=== PATIENT | male | born 1955 | race Caucasian/White ===

== ENCOUNTER → 2021-10-19 | Outpatient (CLI) | payer MEDICARE ==
[~2021-10-19] MED LIST: AMLODIPINE BESY10 MG PO; ASPIRIN EC81 M1 PO; C COMPLEX1000 MG PO; COREG CR20 MG PO; HYDROCODON-ACE1 EAC7 PO; LOMOTIL TABLET1 EACH PO; MOBIC15 MG PO; MULTIVITAMINS PO; SUPER B COMPLE1 EAC2 PO; TRAMADOL 50 MG50 MG PO; VITAMIN B6 PO
--- NOTE | 2021-10-19 15:17 | 2DMMODE ---
[place] [address] 2 D/M-MODE ECHOCARDIOGRAM Name: VICENTE MORALES [id number] Admission: 10/19/21 Attend Phys: Vicente Mays, Discharge: Date of : 51 Date of Service: 10/19/21 1517 Report #: [id number] THIS REPORT FOR: cc: Roger Shabazz Vincent R. DO Holkins,Regis Mortensen MD [facility] ~ APPROVED REPORT Study performed: 10/19/2021 11:43:01 EXAM: Comprehensive 2D, Doppler, and color-flow Echocardiogram Patient Location: Out-Patient BSA: 1.85 HR: 80 bpm BP: 140/95 mmHg Other Information Study Quality: Good Indications Abnormal ECG Hypertension/HDD 2D Dimensions IVSd: 11.87 (7-11mm) LVOT Diam: 21.40 (18-24mm) LVDd: 46.50 mm PWd: 10.87 (7-11mm) Ascending Ao: 30.62 (22-36mm) LVDs: 31.30 (25-40mm) Aortic Root: 28.76 mm Volumes Left Atrial Volume (Systole) LA ESV Index: 20.30 mL/m2 Aortic Valve AoV Peak Demarco.: 1.18 m/s AO Peak Gr.: 5.56 mmHg LVOT Max P.12 mmHg AO Mean Gr.: 3.20 mmHg LVOT Mean P.63 mmHg LVOT Max V: 1.01 m/s AO V2 VTI: 21.00 cm LVOT Mean V: 0.56 m/s JUAN (VTI): 2.97 cm2 LVOT V1 VTI: 17.35 [place] [address] 2 D/M-MODE ECHOCARDIOGRAM Name: VICENTE MORALES [facility] [id number] Admission: 10/19/21 Attend Phys: Vicente Mays, Discharge: Date of : 51 Date of Service: 10/19/21 1517 Report #: [id number] E/A Ratio: 0.67 MV Decel. Time: 248.63 ms MV E Max Demarco.: 0.56 m/s MV PHT: 72.10 ms MVA (PHT): 3.05 cm2 TDI E/Lateral E': 5.60 E/Medial E': 6.22 Medial E' Demarco.: 0.09 m/s Lateral E' Demarco.: 0.10 m/s Pulmonary Valve PV Peak Demarco.: 0.97 m/s PV Peak Gr.: 3.73 mmHg Left Ventricle The left ventricle is normal size. There is normal LV segmental wall motion. There is normal left ventricular wall thickness. Left ventricular systolic function is normal. The left ventricular ejection fraction is within the normal range. LVEF is 60-65%. Grade I - abnormal relaxation pattern. Right Ventricle The right ventricle is normal size. The right ventricular systolic function is normal. Atria The left atrium size is normal. The right atrium size is normal. Aortic Valve Mild aortic valve sclerosis. No aortic regurgitation is present. There is no aortic valvular stenosis. Mitral Valve The mitral valve appears structurally normal with mild prolapse of the posterior leaflet Mild mitral regurgitation. No evidence of mitral valve stenosis. Tricuspid Valve The tricuspid valve is normal in structure. There is no tricuspid valve regurgitation noted. Pulmonic Valve The pulmonary valve is normal in structure. There is no pulmonic [place] [address] 2 D/M-MODE ECHOCARDIOGRAM Name: VICENTE MORALES [facility] [id number] Admission: 10/19/21 Attend Phys: Vicente Mays, Discharge: Date of : 51 Date of Service: 10/19/21 1517 Report #: [id number] Great Vessels The aortic root is normal in size. IVC is normal in size and collapses >50% with inspiration. Pericardium There is no pericardial effusion. <Conclusion> The left ventricle is normal size. There is normal left ventricular wall thickness. Left ventricular systolic function is normal. The left ventricular ejection fraction is within the normal range. LVEF is 60-65%. Grade I - abnormal relaxation pattern. The right ventricle is normal size. The left atrium size is normal. Mild aortic valve sclerosis. No aortic regurgitation is present. There is no aortic valvular stenosis. The mitral valve appears structurally normal with mild prolapse of the posterior leaflet Mild mitral regurgitation. The tricuspid valve is normal in structure. IVC is normal in size and collapses >50% with inspiration. There is no pericardial effusion. <ELECTRONICALLY SIGNED> By: Regis Chapman MD, FACC 10/19/21 1517 [id number] Regis Chapman MD, FACC /INF
--- NOTE | 2021-10-19 16:26 | CARDNUC ---
[place] [address] CARDIAC NUCLEAR IMAGING REPORT Name: VICENTE MORALES [facility] [id number] Admission: 10/19/21 Attend Phys: Vicente Mays, Discharge: Date of : 51 Date of Service: 10/19/21 1626 Report #: [id number] THIS REPORT FOR: cc: Roger Shabazz,Vicente Douglas MD [facility] ~ APPROVED REPORT Imaging Protocol: Rest Tc-99m/Stress Tc-99m 1 day Study performed: 10/19/2021 09:00:00 Indication: Dyspnea, abnormal EKG Patient Location: Out-Patient Stress Tech: Alice Nino Stress Nurse: ANNALISA Anderson Tech:PRASANTH Gonzalez Ht: 5 ft 7 in Wt: 163 lbs BSA: 1.85 m2 HR: 80 bpm BP: 140/95 mmHg BMI: 25.52 Rhythm: Sinus rhythm Medical History Medical History: Hyperlipidemia, HTN, RBBB, Tobacco use, Medications: Atorvastatin Allergies: ENIO inhibitors, codeine Cardiac Risk Factors: Hyperlipidemia, HTN Pretest Chest Pain Characteristics: No chest pain Resting Data Rest SPECT myocardial perfusion imaging was performed in supine position 30 minutes following the intravenous injection of 9.5 mCi of Tc-99m Sestamibi. Time of rest injection: 919 Date: 10/19/2021 The images were gated to evaluate regional wall motion and calculate left ventricular ejection fraction. Administration Route: IV Pharmacologic Stress Pharmacologic stress test was performed by injecting Regadenoson 0.4 mg IV push over 10-15 seconds immediately followed by the intravenous injection of 31.9 mCi of Tc-99m Sestamibi. Time of stress injection: 102 Date: 10/19/2021 Administration Route: [place] [address] CARDIAC NUCLEAR IMAGING REPORT Name: VICENTE MORALES Room: [facility]#: [id number] Admission: 10/19/21 Attend Phys: Vicente Mays, Discharge: Date of : 51 Date of Service: 10/19/21 1626 Report #: [id number] Gated Stress SPECT was performed 40 minutes after stress injection. The images were gated to evaluate regional wall motion and calculate left ventricular ejection fraction. Prone imaging was performed. Stress Test Details Stress Test: Pharmacologic stress testing performed using 0.4 mg of regadenoson per 5 mL given IV over 10 seconds. Reason for pharmacologic stress test: HTN. HR Max Heart Rate (APMHR): 152 bpm Resting HR: 80 bpm Target HR (85% APMHR): 129 bpm Max HR Achieved: 103 bpm % of APMHR: 67 Recovery HR: 100 bpm BP Resting BP: 140/95 mmHg Max BP: 156/83 mmHg Recovery BP: 154/96 mmHg ECG Resting ECG: Sinus Rhythm Stress ECG: Sinus Tachycardia ST Change: None Arrhythmia: None Recovery ECG: Sinus Rhythm Recovery ST Change: None Recovery Arrhythmia: None Clinical Reason for Termination: Completed protocol Stress Symptoms: SOB, nausea, mild headache The patient tolerated Lexiscan infusion without significant cardiac symptom. Nurse Comments Report completed by Vidya Bach RN Stress ECG Conclusion The baseline twelve-lead EKG shows sinus rhythm with right bundle branch block. EKGs obtained during and post Lexiscan infusion show sinus rhythm and sinus tachycardia with no significant ST segment changes when compared to baseline. There were no stress[place] [address] CARDIAC NUCLEAR IMAGING REPORT Name: VICENTE MORALES [facility] [id number] Admission: 10/19/21 Attend Phys: Vicente Mays, Discharge: Date of : 51 Date of Service: 10/19/21 1626 Report #: [id number] Study Quality Study: Good Artifact: Mild Diaphragmatic artifact Study Data At rest, the left ventricular ejection fraction was 57%.. Post stress, the left ventricular ejection was 73%.. TID = 0.90. Perfusion Perfusion images obtained in the supine position at rest and post Lexiscan stress show photopenia in the inferior wall that resolves completely with post-rest prone imaging consistent with diaphragmatic attenuation artifact. No other significant fixed or reversible defects are identified. Wall Motion Normal left ventricular wall motion. Nuclear Conclusion ECG Findings: negative for ischemia Clinical Findings: negative for ischemia Nuclear Findings: negative for ischemia Exercise Capacity: not assessed Left Ventricular Function: normal Risk Study: low Perfusion images show no defect to suggest infarct or ischemia. Left ventricular systolic function appears normal on gated studies. This is a low risk study. <Conclusion> The baseline twelve-lead EKG shows sinus rhythm with right bundle branch block. EKGs obtained during and post Lexiscan infusion show sinus rhythm and sinus tachycardia with no significant ST segment changes when compared to baseline. There were no stress-induced arrhythmias. <ELECTRONICALLY SIGNED> By: Vicente Mays MD, FACC 10/19/21 1626 25 25 Vicente Mays MD, FACC /INF
== END ==
LOC: M.CRD 09-22 09:49 → M.NUC 07:25
PROVIDERS: ATTEND Internal Medicine Cardiovascular Disease
DX: I08.0 Rheumatic disorders of both mitral and aortic valves (principal); I10 Essential (primary) hypertension; R94.31 Abnormal electrocardiogram [ECG] [EKG]; Z72.0 Tobacco use